=== PATIENT | male | born 1960 | race Caucasian/White ===

== ENCOUNTER 2017-06-26 12:51 | Emergency (ER) | payer OTHER ==
[2017-06-26 12:58] VITALS: TEMP 98.4
[2017-06-26] MEDS ORDERED: fentaNYL 100 MCG/2 ML INJ IVP ONE (12:59)
[2017-06-26] MEDS ORDERED: KETOROLAC 15 MG/1 ML SDV IVP ONE (12:59)
[2017-06-26] MEDS ORDERED: ONDANSETRON 4 MG/2 ML VIAL IVP ONE (13:05)
--- NOTE | 2017-06-26 13:05 | EDPHY ---
H & P Time Seen by Provider: 06/26/17 12:57 HPI/ROS: CHIEF COMPLAINT: Right flank pain HISTORY OF PRESENT ILLNESS: Intermittent dysuria over the last 5 days. Yesterday was seen at physician's office had hematuria and started on antibiotics. Today was hiking [place] and had 2 hours ago onset of severe right flank pain radiating to his right groin and penis. Feeling of urinary urgency. Symptoms are severe and helped only a little bit by 200 mcg of fentanyl given by paramedics en route to the emergency department. Not better worse with position. REVIEW OF SYSTEMS: Eye: no symptoms ENT: no symptoms Cardiac: no chest pain Pulmonary: no cough or SOB Abdomen: HPI, had vomiting prior to arrival which he thinks was because of the pain. Musculoskeletal: HPI Skin: no rash Neuro: no headache Constitutional: no fever : HPI A comprehensive 10 point review of systems is otherwise negative aside from elements mentioned in the history of present illness. PAST MEDICAL HISTORY: Includes thyroid, appy, clavicle fracture, kidney stones Social history: , lives [place] General Appearance: Alert and conversant, cooperative. Moderately uncomfortable. Eyes: No scleral icterus. ENT, Mouth: Normal mucous membranes. Respiratory: Normal respiratory effort, breath sounds equal, lungs are clear to auscultation. Cardiovascular: Regular rate and rhythm. Gastrointestinal: Abdomen is soft and non tender. Neurological: Alert and oriented x3. Normally conversant. Normal movement and sensation in all extremities. Skin: Warm and dry, no rashes. Musculoskeletal: No peripheral edema. Psychiatric: Not agitated. Emergency Department course/MDM: 100 mcg IV fentanyl and 15mg IV Toradol. 1315: Pain improved to 6/10. High likelihood for renal colic, do not think emergent imaging is required. Discussed with the patient who agrees and would like to try pain control and management as an outpatient without imaging, which I think is reasonable. 1400: Urine dip positive for blood but negative for infection. Flomax discussed pros and cons and consented. I think the patient is low risk of having an adverse reaction. 1428: Pain increasing again from 2/10 to 5/10, 2 oral Percocet. Signed out to Trena with plan to go home if pain adequately controlled. Smoking Status: Never smoked Constitutional: Initial Vital Signs Temperature (C) 36.9 C 06/26/17 12:53 Heart Rate 68 06/26/17 12:53 Respiratory Rate 20 06/26/17 12:53 Blood Pressure 141/80 H 06/26/17 12:53 O2 Delivery Mode Room Air O2 (L/minute) 2 Allergies/Adverse Reactions: Penicillins Allergy (Verified 01/27/16 14:33) Home Medications: Medication Instructions Recorded Hydrocodone/APAP 5/325 [[place] 1 - 2 each PO Q4-6PRN PRN #20 tab 01/27/16 5/325] Levothyroxine 01/27/16 Pantoprazole Sodium [Protonix] 20 mg PO DAILY #30 tablet. 01/27/16 Tamsulosin HCl [Flomax] 0.4 mg PO DAILY8 #7 cap 06/26/17 oxyCODONE IR [Oxycodone Ir (*)] 5 - 10 mg PO Q6 PRN #30 tab 06/26/17 oxyCODONE/APAP 5/325 [Percocet] 1 - 2 tab PO Q4-6PRN PRN #11 tab 06/26/17 Medical Decision Making - Data Points Medications Given: Discontinued Medications Fentanyl (Sublimaze) 100 mcg IVP EDNOW ONE Stop: 06/26/17 13:00 Last Admin: 06/26/17 13:04 Dose: 100 mcg Hydromorphone HCl (Dilaudid) 0.5 mg IVP EDNOW ONE Stop: 06/26/17 13:08 Last Admin: 06/26/17 13:27 Dose: 0.5 mg Sodium Chloride (Ns) 1,000 mls @ 0 mls/hr IV ONCE ONE PRN Reason: Wide Open Stop: 06/26/17 13:24 Last Admin: 06/26/17 13:28 Dose: 1,000 mls Ketorolac Tromethamine (Toradol) 15 mg IVP ONCE ONE Stop: 06/26/17 13:00 Last Admin: 06/26/17 13:02 Dose: 15 mg Ondansetron HCl (Zofran) 4 mg IVP EDNOW ONE Stop: 06/26/17 13:06 Last Admin: 06/26/17 13:27 Dose: 4 mg Oxycodone/Acetaminophen (Percocet 5/325) 2 tab PO EDNOW ONE Stop: 06/26/17 14:30 Last Admin: 06/26/17 14:41 Dose: 2 tab Tamsulosin HCl (Flomax) 0.4 mg PO EDNOW ONE Stop: 06/26/17 13:41 Last Admin: 06/26/17 13:52 Dose: 0.4 mg Departure - Departure Disposition: Home, Routine, Self-Care Clinical Impression: Renal colic on right side Condition: Good Instructions: Renal Colic (ED) Additional Instructions: Stop oral antibiotics. You do not have evidence today for urinary infection. Ibuprofen 600mg every 8 hours for next 3 days. Referrals: Td Waldrop MD [Medical Doctor] - As per Instructions Prescriptions: oxyCODONE IR [Oxycodone Ir (*)] 5 - 10 mg PO Q6 PRN #30 tab PRN Reason: Pain, Severe oxyCODONE/APAP 5/325 [Percocet] 1 - 2 tab PO Q4-6PRN PRN #11 tab PRN Reason: Pain Tamsulosin HCl [Flomax] 0.4 mg PO DAILY8 #7 cap
[2017-06-26] MEDS ORDERED: HYDROmorphONE/DILAUDID 1 MG/ML SYR IVP ONE (13:07)
[2017-06-26] MEDS ORDERED: NS 1,000 ML IV ONE (13:23)
[2017-06-26] MEDS ORDERED: TAMSULOSIN HCL 0.4 MG CAP PO ONE (13:40)
[2017-06-26] MEDS ORDERED: OXYCODONE/APAP 5/325 TAB PO ONE (14:29)
[2017-06-26 14:42] VITALS: RESP 16
[2017-06-26 16:27] VITALS: BP 107/71; PULSE 73; O2SAT 99
== END 2017-06-26 16:27 | disposition home or self-care (01) ==
LOC: EDUNIT#
DX: N23 Unspecified renal colic (principal); R11.10 Vomiting, unspecified
CPT/HCPCS: 82947-QW; 96374; J1170; J1885; J2405; J3010

== ENCOUNTER → 2018-09-26 | Outpatient (CLI) | payer OTHER | LOC: FIMAGING 14:33 | PROVIDERS: ATTEND Family Medicine | DX: Z13.6 Encounter for screening for cardiovascular disorders (principal) | CPT/HCPCS: 0126T ==